=== PATIENT | female | born 2000 | race Caucasian/White ===

== ENCOUNTER 2021-01-06 17:37 | Emergency (ER) | payer BC, OTHER | END 2021-01-06 19:20 | disposition home or self-care (01) | LOC: ER1 17:37 | DX: Z49.02 Encounter for fitting and adjustment of peritoneal dialysis catheter (principal); N18.9 Chronic kidney disease, unspecified; R09.02 Hypoxemia | CPT/HCPCS: 99284 ==

== ENCOUNTER 2021-01-07 03:47 | Emergency (ER) | payer BC, OTHER ==
[~2021-01-07] VITALS: Ht 152.4 cm; Wt 59.0 kg
[2021-01-07 05:30] LABS: HEMOGLOBIN 9.6 gm/dl (12.3-15.3); RED BLOOD COUNT 3.28 M/UL (4.00-5.10); WHITE BLOOD COUNT 14.5 K/UL (4.5-11.0)
[2021-01-07 05:53] LABS: BUN/CREATININE RATIO 7 (0-10)
== END 2021-01-07 07:30 | disposition left against medical advice (07) ==
LOC: ER1 03:47 → CDU 06:15 → ER1 06:15 → CDU 07:30
PROVIDERS: Physician Assistant
PROC: 5A09357 Assistance with Respiratory Ventilation, Less than 24 Consecutive Hours, Continuous Positive Airway Pressure (ICD-10-PCS; principal; 2021-01-07)
DX: J96.01 Acute respiratory failure with hypoxia (principal); N18.6 End stage renal disease; I12.0 Hypertensive chronic kidney disease with stage 5 chronic kidney disease or end stage renal disease; J81.1 Chronic pulmonary edema; F17.210 Nicotine dependence, cigarettes, uncomplicated; E87.5 Hyperkalemia; D64.9 Anemia, unspecified; Z20.822 Contact with and (suspected) exposure to COVID-19; Z91.14 Patient's other noncompliance with medication regimen; Q05.9 Spina bifida, unspecified; Z91.15 Patient's noncompliance with renal dialysis; Z91.040 Latex allergy status
CPT/HCPCS: 36600; 71045; 80053; 82550; 82553; 82803; 83874; 83880; 84484; 85025; 93005; 94660; 94760; 99284; 99285; J0610; U0002